=== PATIENT | male | born 1980 | race Two or more races ===

== ENCOUNTER 2019-11-30 11:39 | Emergency (ER) | payer OTHER ==
[~2019-11-30] VITALS: Ht 170.2 cm; Wt 79.5 kg
[2019-11-30 11:51] VITALS: BP 138/96
--- NOTE | 2019-11-30 12:02 | NUR ---
"I WAS STANDING ON A LATTER MY FEET WERE ABOUT 6 FEET HIGH AND THE LADDER FELL SIDEWAYS AND I CAME CRASHING ON MY HEELS". PAIN TO BOTH HEELS AND ANKLES. PAIN MORE TO R FOOT THAN THE L. WAS SEEN AT [facility] AND TOLD TO COME TO ED FIRST. Pt reports very tender to apply pressure on them and unable to ambulate well. Pt using crutches. Pt has good cap refill and strong equal pulse bilaterally. Pt reports no previous injury and denies loss of LOC.
--- NOTE | 2019-11-30 12:21 | NUR ---
Xryas ordered, pt not wanting ICE pack at this time. Left at bedside.
--- NOTE | 2019-11-30 12:28 | NUR ---
Pt to xray.
--- NOTE | 2019-11-30 13:07 | NUR ---
Patient/Caregiver given discharge instructions and they have confirmed that they understand the instructions. Patient ambulatory with steady gait.
== END 2019-11-30 13:24 | disposition home or self-care (01) ==
LOC: ED 13:02
DX: S39.012A Strain of muscle, fascia and tendon of lower back, initial encounter (principal); S90.31XA Contusion of right foot, initial encounter; S93.412A Sprain of calcaneofibular ligament of left ankle, initial encounter; W11.XXXA Fall on and from ladder, initial encounter; Y93.89 Activity, other specified; Y92.69 Other specified industrial and construction area as the place of occurrence of the external cause; Y99.0 Civilian activity done for income or pay
CPT/HCPCS: 72110; 99284